=== PATIENT | male | born 1940 | race Caucasian/White ===

== ENCOUNTER 2022-05-25 02:46 | Emergency (ER) | payer MEDICARE, BC, SELFPAY ==
[2022-05-25] VITALS (9 sets, daily range): BP systolic 133–167; BP diastolic 70–82; PULSE 51–64; RESP 16; TEMP 36.5; O2SAT 95–100; BMI 25.8
--- NOTE | 2022-05-25 03:10 | CRLHL7_ITS ---
For Patients: As a result of the Century Cures Act, medical imaging exams and procedure reports are released immediately into your electronic medical record. You may view this report before your referring provider. If you have questions, please contact your health care provider. INDICATION: Chest pain. TECHNIQUE: Chest 2 views. COMPARISON: Chest radiograph 02/13/2019. FINDINGS: No focal consolidation, pleural effusion, or pneumothorax. Normal heart size and pulmonary vascularity. Degenerative changes of the spine. IMPRESSION: No acute cardiopulmonary findings. Dictated by Maggie Glynn MD @ 05/25/2022 4:33:45 AM (Electronically Signed)
--- NOTE | 2022-05-25 03:22 | ED_ITS ---
HPI - Chest Pain General Time Seen by Provider: 03: Date Seen: 05/25/22 Chief Complaint: Chest Pain Stated Complaint: Chest Pain Time Seen by Provider: 05/25/22 02:49 Source: patient Mode of arrival: ambulatory Limitations: no limitations History of Present Illness HPI narrative: Patient is a enzo 81-year-old gentleman who presents here with chest pain he ambulatory to the emergency room the chest pain started 10:00 a.m. after went to sleep he describes his epigastric region when he took a deep breath in he noticed it. The pain is gone away totally, since he has come to the hospital he feels back to baseline at the present time. His was a nurse who accompanied him here tells me that she wondered if this was related to: Issue as he has had previous colon cancer and also small-bowel obstruction few years ago that had to have an operation. Did feel his abdomen and felt that was soft and thought this was unlikely. Given his age however she worried about whether this was cardiac in nature in the presented here to the emergency room. They did not take any medications at home to help this. There is no radiation no other symptoms associated with this. He has never before had symptoms like this MD complaint: chest discomfort Onset (ago): hour(s) (4 hrs ) Timing of current episode: constant Prior episodes: No Onset: during rest Pain location: epigastric Pain radiation: none Severity: moderate Quality: fullness Relieving factors: nothing Exacerbating factors: nothing Treatment prior to arrival: none Risk Factors Coronary artery disease risk factors: none Thoracic aortic dissection risk factors: none Related Data Home Medications Medication Instructions Recorded Confirmed Benadryl 05/25/22 atorvastatin 10 mg tablet mg 05/25/22 diltiazem HCl 300 mg capsule,24 mg PO 05/25/22 hr,extended release lisinopril 5 mg tablet mg 05/25/22 paroxetine HCl 10 mg tablet mg PO 05/25/22 spironolactone 25 mg tablet mg 05/25/22 tamsulosin 0.4 mg capsule mg PO 05/25/22 Allergies Allergy/AdvReac Type Severity Reaction Status Date / Time No Known Drug Allergies Allergy Verified 05/25/22 03:11 Review of Systems Status of ROS Reports: 10 or more systems reviewed and unremarkable except as noted in History and below PFSH PFSH Social History Smoking Status: Never smoker How often do you have a drink containing alcohol: 2-4 times a month AUDIT-C Alcohol total score: 2 Non-prescribed substance use: denies use Exam Const Vital Signs, click to edit/add: Vital Signs - 24 hr 05/25/22 02:58 05/25/22 03:00 05/25/22 03:20 Temperature 97.7 F Pulse Rate [Right Pulse Oximeter] 63 64 58 L Respiratory Rate 16 16 16 Blood Pressure [Left Upper Arm] 151/80 H 151/80 H 152/73 H Pulse Oximetry 100 97 97 05/25/22 03:40 05/25/22 04:20 05/25/22 05:00 Temperature Pulse Rate [Right Pulse Oximeter] 63 57 L 52 L Respiratory Rate 16 16 16 Blood Pressure [Left Upper Arm] 167/82 H 151/77 H 133/73 Pulse Oximetry 97 96 95 05/25/22 05:40 05/25/22 06:00 05/25/22 06:40 Temperature Pulse Rate [Right Pulse Oximeter] 51 L 53 L 57 L Respiratory Rate 16 16 16 Blood Pressure [Left Upper Arm] 145/70 H 136/77 152/75 H Pulse Oximetry 97 96 98 Documenting provider has reviewed patient's vital signs: yes Common normals: no apparent distress, average body habitus, oriented x3, no limitations, healthy appearing, alert and well nourished General appearance: cooperative, comfortable, well kempt and well developed Orientation/consciousness: Yes awake, Yes oriented to person, Yes oriented to place and Yes oriented to time [facility] Common normals: normocephalic, head/scalp atraumatic, hearing grossly normal bi laterally, external ears normal, EAC's normal, TM's normal bilaterally, external nose normal, nasal mucous membranes and turbinates normal, moist oral mucous membranes, oropharynx normal, dentition normal and gingiva normal Head and scalp: normocephalic and atraumatic Nose: external nose normal and nasal mucous membranes and turbinates normal External ear: external ears normal External auditory canal: EAC's normal Tympanic membrane: TM's normal bilaterally Mouth: oral and palatal mucosa normal Eye Common normals: PERRL, EOMs intact bilaterally, conjunctivae normal, no scleral icterus, no papilledema, normal visual leahy by confrontation and fundi normal bilaterally Conjunctiva: conjunctiva(e) normal Pupil: PERRL Direct Ophthalmoscopy: no papilledema and fundi normal bilaterally Neck & C-Spine Common normals: full ROM, no lymphadenopathy, supple, no meningeal signs, no JVD, thyroid normal and no carotid bruits Thyroid: thyroid normal Chest Common normals: inspection of chest normal, palpation of chest normal, inspection of breasts normal and palpation of breasts normal Resp Common normals: normal respiratory effort, no retractions, no use of accessory muscles, clear to auscultation bilaterally and percussion normal Auscultation: clear to auscultation bilaterally Percussion: percussion normal Cardio Common normals: no JVD, regular rate, regular rhythm, S1 normal heart sound, S2 normal heart sound, no gallops, no clicks, no murmurs, no rub and peripheral pulses 2+ throughout Rate: regular rate Rhythm: regular rhythm Heart sounds: S1 normal and S2 normal Peripheral pulses: pulses 2+ throughout GI Common normals: Normal to inspection, nondistended, normoactive bowel sounds present, non-tender, no hepatosplenomegaly, no masses and no bruits Inspection: normal to inspection and other (Scars from previous surgery are noted well-healed) Auscultation: normoactive bowel sounds Palpation: no hepatosplenomegaly Common normals: no CVA tenderness, external exam normal, testes normal, scrotum normal, no scrotal swelling and no hernias present Bladder/kidney exam: no CVA tenderness Back & Pelvis Common normals: no CVA tenderness Extremity Common normals: normal to inspection, full ROM, normal capillary refill, no joint enlargement, no clubbing, cyanosis or edema, no calf tenderness and no pedal edema Neuro Common normals: oriented x3 Sensorium/orientation: awake, alert, oriented to person, oriented to place and oriented to time Meningeal signs: no meningeal signs Psych Appearance: well kempt Skin Common normals: no rashes or lesions noted, no wounds, skin turgor normal, no jaundice, no petechiae and no mottling General skin exam: no rashes or lesions noted and turgor normal Course Course Hospital Course: Patient remained pain-free during his entire course here his 2nd troponin was also 0, done 3 hours after the 1st, his heart score is in the low risk category. D-dimer age adjusted was also normal. Repeat EKG was also normal. His chest x-ray imaging was normal. Laboratory work was also negative including a COVID test. I think it would be reasonable let him go home at this point he is pain free, follow-up with primary care suggested consideration of further imaging at this point. Return here if increasing chest pain shortness of breath or any other worrisome signs and symptoms which I discussed with him. Vital Signs Vital signs: Initial Vital Signs Temperature 97.7 F 05/25/22 02:58 Temperature Source Temporal Artery Scan 05/25/22 02:58 Pulse Rate 63 05/25/22 02:58 Respiratory Rate 16 05/25/22 02:58 Blood Pressure 151/80 H 05/25/22 02:58 Blood Pressure Mean 103 05/25/22 02:58 Blood Pressure Position Supine 05/25/22 02:58 Pulse Oximetry 100 05/25/22 02:58 Oxygen Delivery Method 05/25/22 02:58 Vital Signs Temperature 97.7 F 05/25/22 02:58 Pulse Rate 63 05/25/22 02:58 Respiratory Rate 16 05/25/22 02:58 Blood Pressure 151/80 H 05/25/22 02:58 Pulse Oximetry 100 05/25/22 02:58 Temperature 97.7 F 05/25/22 02:58 Pulse Rate 57 L 05/25/22 06:40 Respiratory Rate 16 05/25/22 06:40 Blood Pressure 152/75 H 05/25/22 06:40 Pulse Oximetry 98 05/25/22 06:40 MDM - Chest Pain MDM Narrative Medical decision making narrative: During the evaluation of this patient I considered multiple differential diagnosis is. The life-threatening differential diagnosis include coronary disease/CT, pulmonary embolism, pneumothorax, pneumonia, and aortic dissection. Other differential diagnosis included but were not limited to pericarditis, myocarditis, chest wall pain, GERD, esophageal rupture, rib fracture contusion, pleurisy, as well as other etiologies. Differential Diagnosis Differential diagnosis: Likely fracture of rib, pneumothorax, stable angina, unstable angina pectoris, atypical chest pain, st elevation myocardial infarction, costochondritis, chest pain and biliary colic Medical Records Data Attestation: I reviewed the patient's medical records. Lab Data Attestation: I reviewed the patient's lab results. Lab results narrative: Initial troponin 0, D-dimer elevated at 0.76 but age adjusted it is below the of the trigger level. He continues to be pain-free, hemoglobin, CBC, basic metabolic profile all within normal limits. We will do a 3 hour troponin EKG on him. If he remains pain-free then I think we can let him go home. I have discussed this with them. Labs: Lab Results 05/25/22 05/25/22 05/25/22 Range/Units 03:35 03:35 03:35 WBC 8.63 (4.50-11.00) K/uL RBC 4.13 L (4.30-5.90) m/uL Hgb 13.2 L (13.5-17.5) gm/dL Hct 39.8 (37.0-53.0) % MCV 96 (80-100) fL MCH 32 (26-34) pg MCHC 33 (32-36) gm/dL RDW Coeff of Dwain 12.1 (11.5-15.5) % Plt Count 253 (140-440) K/uL Neut % (Auto) 66.6 (42.0-72.0) % Lymph % (Auto) 20.6 (20-44) % Greene % (Auto) 8.8 (0.0-11.0) % Eos % (Auto) 3.6 (0.0-7.0) % Baso % (Auto) 0.3 (0.0-3.0) % Neut # (Auto) 5.74 (1.7-7.0) K/uL Lymph # (Auto) 1.78 (0.90-2.90) K/uL Greene # (Auto) 0.80 (0.00-0.90) K/UL Eos # (Auto) 0.31 (0.00-0.50) K/uL Baso # (Auto) 0.03 (0.00-0.30) K/uL Abs Immat Gran (auto) 0.01 (0.00-0.30) K/uL INR 1.03 (0.91-1.10) APTT 37 H (23-33) Seconds D-Dimer Quant (PE/DVT) 0.76 H (0.00-0.50) ug/ml Sodium 136 (135-149) mmol/L Potassium 4.4 (3.6-5.1) mmol/L Chloride 103 (96-114) mmol/L Carbon Dioxide 31 (20-32) mmol/L BUN 20 (7-30) mg/dL Creatinine 1.1 (0.5-1.5) mg/dL Estimated Creat Clear 48.41 Estimated GFR 67 ml/min Glucose 112 (60-115) mg/dL Calcium 9.6 (8.4-10.6) mg/dL NT-Pro-B Natriuret Pep 261 (0-450) PG/mL SARS-CoV-2 (PCR) (Negative) POC Troponin I (0.01-0.04) ng/ml 05/25/22 05/25/22 05/25/22 Range/Units 03:35 03:35 06:45 WBC (4.50-11.00) K/uL RBC (4.30-5.90) m/uL Hgb (13.5-17.5) gm/dL Hct (37.0-53.0) % MCV (80-100) fL MCH (26-34) pg MCHC (32-36) gm/dL RDW Coeff of Dwain (11.5-15.5) % Plt Count (140-440) K/uL Neut % (Auto) (42.0-72.0) % Lymph % (Auto) (20-44) % Greene % (Auto) (0.0-11.0) % Eos % (Auto) (0.0-7.0) % Baso % (Auto) (0.0-3.0) % Neut # (Auto) (1.7-7.0) K/uL Lymph # (Auto) (0.90-2.90) K/uL Greene # (Auto) (0.00-0.90) K/UL Eos # (Auto) (0.00-0.50) K/uL Baso # (Auto) (0.00-0.30) K/uL Abs Immat Gran (auto) (0.00-0.30) K/uL INR (0.91-1.10) APTT (23-33) Seconds D-Dimer Quant (PE/DVT) (0.00-0.50) ug/ml Sodium (135-149) mmol/L Potassium (3.6-5.1) mmol/L Chloride (96-114) mmol/L Carbon Dioxide (20-32) mmol/L BUN (7-30) mg/dL Creatinine (0.5-1.5) mg/dL Estimated Creat Clear Estimated GFR ml/min Glucose (60-115) mg/dL Calcium (8.4-10.6) mg/dL NT-Pro-B Natriuret Pep (0-450) PG/mL SARS-CoV-2 (PCR) Negative SARS-CoV-2 (Negative) POC Troponin I 0.00 L 0.00 L (0.01-0.04) ng/ml Imaging Data Chest x-ray: Attestation: I have reviewed the pertinent imaging results. My impression: No acute infiltrate no pneumothorax normal heart size no acute findings. Radiologist's impression: Patient: BHAVIN VELAZCO Facility: [facility] Site . Site : [id number] Study: XRay Chest 2 views-05/25/2022 3:41:18 AM Ordering Physician: Cuong Cárdenas Final Report: INDICATION: Chest pain. TECHNIQUE: Chest 2 views. COMPARISON: Chest radiograph 02/13/2019. FINDINGS: No focal consolidation, pleural effusion, or pneumothorax. Normal heart size and pulmonary vascularity. Degenerative changes of the spine. IMPRESSION: No acute cardiopulmonary findings. Dictated by Maggie Glynn MD @ 05/25/2022 4:33:45 AM (Electronic Signature) ECG Data Attestation: I personally reviewed and interpreted this ECG as follows: ECG interpretation date: 05/25/22 ECG interpretation time: 03:30 Prior ECG tracings: not available for review Interpretation: Sinus rhythm with occasional PVCs ventricular rate 62, no acute ST wave changes 6:41 a.m. 2nd EKG is done showing borderline first-degree block sinus bradycardia but otherwise normal EKG with no acute changes unchanged from previous Discharge Plan Discharge Clinical Impression: Atypical chest pain, Chest pain Patient Disposition: Home w/ Parent or Adult Condition: Improved Instructions: Chest Pain (ED) Additional Instructions: Home rest consider follow-up with her primary care physician for further testing consideration. Your blood tests all came back within normal limits. No evidence of heart damage her EKGs were normal. With no changes also. Because of the pain remains elusive but likely a GI cause is most likely. Activity Level: No Restrictions Prescriptions: No Action paroxetine HCl 10 mg tablet PO 0RF Label Comments: TAKE 1 TABLET BY MOUTH ONCE DAILY atorvastatin 10 mg tablet 0RF Label Comments: TAKE 1 TABLET BY MOUTH ONCE DAILY IN THE EVENING STOP TAKING SIMVASTATIN diltiazem HCl 300 mg capsule,extended release 24 hr PO 0RF Label Comments: TAKE 1 CAPSULE BY MOUTH ONCE DAILY spironolactone 25 mg tablet 0RF Label Comments: TAKE 1 TABLET BY MOUTH ONCE DAILY tamsulosin 0.4 mg capsule PO 0RF Label Comments: TAKE 1 CAPSULE BY MOUTH ONCE DAILY IN THE EVENING lisinopril 5 mg tablet 0RF Label Comments: TAKE 1 TABLET BY MOUTH ONCE DAILY Benadryl 0RF Follow Up/Referrals: Marlo Wright MD [Primary Care Provider] - Stand Alone Forms: [facility] Info Instructions Procedures Ultrasound Cardiac exam #1: Anatomical areas examined: subxiphoid, parasternal long, parasternal short and apical 4 chamber Indications: chest pain Exam type: limited transthoracic echocardiogram Impression: negative exam
[2022-05-25] MEDS: ASPIRIN 81 MG TAB.CHEW 162 MG PO (03:24)
[2022-05-25 03:49] LABS: Basophils Absolute Auto 0.03 K/uL (0.00-0.30); Basophils Percent Auto 0.3 % (0.0-3.0); Eosinophils Absolute Auto 0.31 K/uL (0.00-0.50); Eosinophils Percent Auto 3.6 % (0.0-7.0); Hematocrit 39.8 % (37.0-53.0); Hemoglobin* 13.2 gm/dL (13.5-17.5); Immature Granulocytes Abs Auto 0.01 K/uL (0.00-0.30); Lymphocytes Absolute Auto 1.78 K/uL (0.90-2.90); Lymphocytes Percent Auto 20.6 % (20-44); Mean Corpuscular HGB Conc 33 gm/dL (32-36); Mean Corpuscular Hemoglobin 32 pg (26-34); Mean Corpuscular Volume 96 fL (80-100); Monocytes Percent Auto 8.8 % (0.0-11.0); Neutrophils Absolute Auto 5.74 K/uL (1.7-7.0); Neutrophils Percent Auto 66.6 % (42.0-72.0); Platelet Count* 253 K/uL (140-440); RDW Coefficient of Variation % 12.1 % (11.5-15.5); Red Blood Count 4.13 m/uL (4.30-5.90); White Blood Count* 8.63 K/uL (4.50-11.00)
[2022-05-25 03:50] LABS: Slide Review Reflex No
[2022-05-25 04:02] LABS: Chloride* 103 mmol/L (96-114)
[2022-05-25 04:03] LABS: Potassium* 4.4 mmol/L (3.6-5.1); Sodium* 136 mmol/L (135-149)
[2022-05-25 04:05] LABS: Creatinine* 1.1 mg/dL (0.5-1.5); Est. Creatinine Clearance* 48.41; Estimated Glomerular Filt Rate 67 ml/min; INR 1.03 (0.91-1.10); Prothrombin Time 13.9 Seconds
[2022-05-25 04:06] LABS: Blood Urea Nitrogen* 20 mg/dL (7-30); Calcium* 9.6 mg/dL (8.4-10.6); Carbon Dioxide* 31 mmol/L (20-32); Glucose* 112 mg/dL (60-115); Partial Thromboplastin Time* 37 Seconds (23-33)
[2022-05-25 04:08] LABS: D Dimer Quantitative* 0.76 ug/ml (0.00-0.50)
[2022-05-25 04:15] LABS: NT Pro B Type NatriureticPept* 261 PG/mL (0-450)
[2022-05-25 05:15] LABS: SARS PCR* Negative SARS-CoV-2 (Negative)
== END 2022-05-25 07:39 | disposition home or self-care (01) ==
PROVIDERS: Emergency Provider Family Medicine; PCP Family Medicine
DX: R07.9 Chest pain, unspecified (principal)
CPT/HCPCS: 36415; 71046; 80048; 83880; 84484; 85025; 85379; 85610; 85730; 87635; 93005; 93308; 99285; A9270

== ENCOUNTER 2022-09-12 11:03 | Outpatient (CLI) | payer MEDICARE, BC, SELFPAY | END 2022-09-12 11:04 | disposition home or self-care (01) | LOC: NFLDUCREF 09-14 11:12 | PROVIDERS: PCP Family Medicine; Visit Provider Student in an Organized Health Care Education/Training Program | DX: R35.0 Frequency of micturition (principal); N39.0 Urinary tract infection, site not specified | CPT/HCPCS: 87086; 87186 ==

== ENCOUNTER 2023-02-15 12:45 | Outpatient (RCR) | payer MEDICARE, BC, SELFPAY ==
--- NOTE | 2022-12-30 17:44 | PT.OPEX ---
PT [place] Outpatient Eval PT [facility] Outpatient Eval Start: 12/30/22 09:59 Freq: Status: Active Protocol: Document 12/30/22 12:39 RADHA (Rec: 12/30/22 14:17 RADHA [id number]) E-signed By Jessy Kohler PT Physical Therapy Outpatient Evaluation Insurance Information Insurance Name Medicare B Insurance Information/Comments MEDICARE Medical Diagnosis BLE WEAKNESS UNSTEADINESS ON FEET Treating Diagnosis BLE WEAKNESS UNSTEADINESS ON FEET GAIT ABNORMALITY Referring MD JOSE G BOYKIN Subjective Subjective PATIENT STATES,MY SAYS I DON'T PICK MY FEET UP AND I THINK I STUMBLE TOO MUCH. PATIENT REPORTS NOT FEELING LIKE HE IS STEADY AND OFTEN FINDS HIMSELF REACHING TO BALANCE DURING ORDINARY DAY TO DAY ACTIVITIES. HE IS HERE B/ C HE DOES NOT WANT TO FALL AND INJURY HIMSELF. Pain Comments 0/10 AT REST Date of Last Physician Visit 12/04/22 Current Work Status Retired Occupation RETIRED CPA Preferred Name BHAVIN Precautions Therapy Limitations/Systems Review Cognition Objective Other/Pertinent Objective KNEE ROM Flexion: WFL'S Extension: WFL'S HIP ROM Flexion: RIGHT AROM 65 LEFT 55 Extension: R/L WFL'S Internal Rotation: PRONE RIGHT 35 LEFT 12 External Rotation PRONE RIGHT 45 LEFT 30 Abduction : WFL'S LLE MMT: Hip flexion: R 4-/5 L 4/5 Hip abduction: R 3+/5 L 3+/5 Hip extension: R 4-/5 L 4-/5 Knee flexion: R 4/5 L 4/5 Knee extension: R 4/5 L 4/5 SPECIAL TEST Valgus Test: (-) R/L Varus Test: (-) R/L Joint line tenderness: UNREMARKABLE Holly test: (-) R/L hyper flexion test: (-) R/L Ravi Compression: (-) R/L SAW test: (+) LEFT>RIGHT FADIR test: (+) LEFT>RIGHT Scour test: (-) R/L REFLEX: PATELLA R 1+/L 2+ ACHILLES R 1+/2+ TX: SUPINE TRUNK ROTATION R/L 3 X 10 SEC SLR X 10 BRIDGE X 10 SEATED HR/TR X 10 SEATED KNEE EXT R/L X 10 SEATED MARCHING X 10 Functional Test Performed & Score 30 STS 4 TUG 19.4 SEC TINETTI 09/28 Assessment Assessment/Impression 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 PATIENT LIVES WITH IS SPOUSE IN A 2 STORY HOME WITH A FINISHED BASEMENT NOTING 2 STEPS TO ENTER AND >10 STEPS TO THE SECOND FLOOR AND/OR BASEMENT. HE REPORTS ALL HIS NEEDS ARE MET ON THE FIRST FLOOR WITH INFREQUENT TRIPS TO BASEMENT NOTING A RAILING ASCENDING ON THE RIGHT BOTH TO ENTER HOME, ACCESS SECOND FLOOR AND BASEMENT. PATIENT REPORTS HAVING FALLEN ON THE ICE OCT 2022 WITH NO SIGNIFICANT INJURY BUT THAT HE HAS DECREASED HIS ACTIVITY SINCE THEN. ADDITIONALLY, HE REPORTS HAVING WALKED FOR EXERCISE WELL BEEN ABLE TO PLAY GOLF UP TO ABOUT A YEAR AGO BUT BEGAN HAVING DIFFICULTY D/T BLE FATIGUE AND UNSTEADINESS THAT HE STOPPED THOSE ACTIVITIES FOR FEAR OF FALLING. HE IS HERE MORE B/C HIS WHO IS ARE RETIRED NURSE NOTICED CHANGES IN GAIT AND POSTURING WITH INCREASED INSTANCES OF STUMBLING. HE ALSO IS BEING SEEN BY OCCUPATIONAL THERAPY TO ADDRESS HIS LEFT HAND NUMBNESS AND IS SCHEDULED FOR AN EMG ON 12/10/22. TODAY, HE DEMONSTRATES UNSTEADINESS UPON STAND AND WITH ALL DIRECTIONAL CHANGES UTILIZING FURNITURE AND THE WALL TO STEADY HIMSELF. OF NOTE, HIS RIGHT PATELLA TENDON REFLEX IS 1+ COMPARED TO LEFT AT 2+ WHICH FOLLOWED SUIT WITH HIS ACHILLES REFLEX. HE DENIES AN H/O STROKE OR BACK ANOMOLIES. HE IS A SIGNIFICANT RISK FOR FALLS EVIDENCED BY A SCORE OF 11/28 ON THE TINETTI BALANCE AND MOBILITY EXAM, 4 STS IN 30 SEC, AND 19.4 SEC ON THE TUG. HE HAS A NOTABLE LEG LENGTH DECREPENCY WITH L SHORTER BY ~1 COMPARED TO THE RIGHT WHICH HE REVEALS IS A RESULT OF THE RIGHT NERIS. HE REPORTS HAVING INSERTS TO ALL HIS SHOES. HE HAS LEFT>RIGHT HIP TIGHTNESS AND RIGHT>LEFT WEAKNESS. ADDITIONALL, HE AMB WITH RIGHT TRENDELENBURT GAIT PATTERN WELL MODERATE FWD TRUNK POSTURING. HE IS CONCERNED THAT HE IS UNABLE TO AMB STEPS W/O PULLING UP WITH HIS BUE AND THAT HE IS UNABLE TO RETURN TO HIS FEET FROM THE FLOOR. TODAY, HE NEEDED QUITE A BIT OF REPITION AND REWORDING TO UNDERSTAND THE SAME EXERCISE PROGRAM PROVIDED FOR HIS NERIS HEP. HE DEMONSTRATES COGNITIVE DEFICITS BUT NO DX THAT I'M AWARE OF. NEXT VISIT I WILL ADMINISTER THE [facility] TO DISCERN EXACTLY WHERE IS DEFICIT RESIDE. TODAY, HE IS PROVIDED AN HEP TO ADDRESS TRUNK AND BLE FLEXIBLITY ALONG WITH STRENGTHENING. HE STRUGGLED CONCEPTUALLY WHAT REPS AND SETS WERE AND FINALLY WAS ABLE TO FIND SOME RELATIONSHIP. HE IS APPROPRIATE FOR SKILLED PHYSICAL THERAPY TO ADDRESS HIS FUNCTIONAL MOBILTY AND BALANCE ALONG WITH FALL PREVENTION AND STRENGTH TO REDUCE HIS RISK FOR FALLS AND MEET HIS PATIENT CENTERED GOALS. PATIENT VERBALIZED UNDERSTANDING OF ALL SKILLED INSTRUCTION WITH PLANS TO REVIEW FOR THE NEXT 2 VISIT D/ T HIS COGNITIVE CHALLENGES. PATIENT IS AGREEABLE TO POC AND FREQ Primary Functional Limitations DIFFICULTY WITH HOUSEHOLD AND COMMUNITY AMB UNSTEADINESS ON FEET DIFFICULTY WITH TRANSFERS AND BALANCE UPON STAND DIFFICULTY WITH STAIRS Plan of Care Rehabilitation Potential Good Rehabilitation Potential Comments PATIENT HAS NOTABLE COGNITIVE DELAY WITH REPEATED INSTRUCTIONS NEEDED WELL ADDING A RELATIONSHIP TO HIS UNDERSTANDING. Physical Therapy Goals ST. PATIENT WILL BE INDEPENDENT WITH HIS HEP IN 4 WEEKS 2. PATIENT WILL PERFORM 8 STS IN 30 SEC IN 4 WEEKS 3. PATIENT WILL AMB WITH UPRIGHT POSTURING DURING HOUSEHOLD AMB WITH 50% LESS CUES PROVIDED BY . LT. PATIENT WILL IMPROVE FALL RISK BY INCREASEING TINETTI FROM 09/28 TO 18 IN 8-12 WEEKS 2. PATIENT WILL IMPROVE THE TUG FROM 19.4 SEC TO 14 SEC OR LESS IN 8-12 WEEKS 3. PATIENT WILL AMB COMMUNITY DISTANCES SAFELY AND CONSISTENTLY TO PARTICIPATE IN WALKING FOR EXERCISE WITH HIS IN 8-12 WEEKS Coordination/Communication With Referral Source Treatment Plan/Direct Interventions Gait Training,Joint Mobilization,Manual Therapy, Neuromuscular Re-ed, Therapeutic Activities, Therapeutic Exercises Patient Will Be Discharged From Therapy Completion of LTG(s),Skills Plateau,Independent w/HEP Discharge Plan Comments DISCHARGE PATIENT TO SELF AND INDEPENDENT HEP WHEN GOALS MET OR MAX POTENTIAL ACHIEVED Evaluation Billing Untimed Code Treatment Minutes 20 PT Eval No Charge No Complexity Low Certification Information Initial Certification Date 12/30/22 Ending Certification Date 03/24/23 Provider Signature Shows Agreement With POC & Medical Necessity Physician Signature & Date Requested Please Sign/Date Here Physician Comment/Change : Physician NPI Number #
== END 2023-02-22 10:37 | disposition home or self-care (01) ==
PROVIDERS: PCP Family Medicine; Visit Provider Family Medicine
DX: R29.898 Other symptoms and signs involving the musculoskeletal system (principal); Z51.89 Encounter for other specified aftercare
CPT/HCPCS: 97110; 97116; 97140; 97161; 97165; X5282

== ENCOUNTER 2023-06-24 12:18 | Outpatient (CLI) | payer MEDICARE, BC, SELFPAY | END 2023-06-24 12:19 | disposition home or self-care (01) | LOC: NFLDREF 06-26 13:40 | PROVIDERS: PCP Family Medicine; Referring Provider Family Medicine; Visit Provider Nurse Practitioner Family | DX: R30.0 Dysuria (principal); N30.00 Acute cystitis without hematuria | CPT/HCPCS: 87086 ==

== ENCOUNTER 2023-08-11 11:10 | Outpatient (CLI) | payer MEDICARE, BC, SELFPAY | END 2023-08-11 11:11 | disposition home or self-care (01) | LOC: NFLDREF 08-13 06:04 | PROVIDERS: PCP Family Medicine; Referring Provider Family Medicine; Visit Provider Physician Assistant | DX: R30.0 Dysuria (principal); N30.00 Acute cystitis without hematuria; N39.0 Urinary tract infection, site not specified | CPT/HCPCS: 87086; 87186 ==

== ENCOUNTER 2023-09-25 10:37 | Outpatient (CLI) | payer MEDICARE, BC, SELFPAY | END 2023-09-25 10:38 | disposition home or self-care (01) | PROVIDERS: PCP Family Medicine; Visit Provider Nurse Practitioner Family | DX: N48.9 Disorder of penis, unspecified (principal) | CPT/HCPCS: 87070; 87086; 87102; 87186; 87205 ==

== ENCOUNTER 2023-10-01 10:30 | Outpatient (RCR) | payer MEDICARE, BC, SELFPAY | END 2024-01-29 23:59 | disposition home or self-care (01) | PROVIDERS: PCP Family Medicine; Visit Provider Orthopaedic Surgery | DX: Z98.890 Other specified postprocedural states (principal); Z51.89 Encounter for other specified aftercare | CPT/HCPCS: 97035; 97110; 97140; 97165; X5282 ==

== ENCOUNTER 2023-10-05 14:09 | Emergency (ER) | payer MEDICARE, BC, SELFPAY | END 2023-10-05 14:26 | disposition home or self-care (01) | PROVIDERS: Emergency Provider Emergency Medicine Emergency Medical Services; PCP Family Medicine | DX: Z53.21 Procedure and treatment not carried out due to patient leaving prior to being seen by health care provider (principal) ==

== ENCOUNTER 2023-10-14 09:30 | Outpatient (RCR) | payer MEDICARE, BC, SELFPAY ==
--- NOTE | 2023-09-08 10:22 | PT.OPEX ---
PT [place] [facility] Eval Start: 09/08/23 07:31 Freq: Status: Active Protocol: Document 09/08/23 07:32 CRP (Rec: 09/08/23 10:20 CRP [id number]) E-signed By David Davila PT Physical Therapy Outpatient Evaluation Insurance Information Recert Due Date 12/07/23 Insurance Name Medicare B Medical Diagnosis Lumbar Degenerative disc disease Treating Diagnosis LBP Muscle weakness gait difficulties Referring MD Dr Arthur Subjective Subjective Pt co LBP that is chronic. Pt has had imaging that showed lumbar spine degeneration. He did meet with a surgeon and was told surgery would not help. Was then given an order for PT. Pain is located at low back more off to the Left. Pain can be very sharp and intense when going from sitting to standing. Mornings are the most painful. Morning pain 8/10. During the day his pain is around 2/10. No pain sitting. No LE pain. Has had times of numbness in the left foot. Pt lives in small home that only has stairs to get to the basement that he does not need to use. One step from house to the outside. Stairs are OK. Pt is also concerned about his balance. Uses a cane. PMHx Had L carpal tunnel and ulnar nn surgery at the L elbow about a month ago. Told not to lift more than 4#. Pain Comments 2-8/10 Current Work Status Retired Objective Range of Motion Trunk ROM Flex WNL seated Ext 10 deg from neutral with LBP R SB mod dec L SB marcy dec with LBP Hip AROM WFL bilat Strength MMT Myotomes WNL Bilat hip abd and ext 4-/5 Palpation Palpable pain L lower lumbar spine Balance & Gait TUG x 35 sec with FWW Sensation/Reflexes Sensation intact to light touch Functional Test Performed & Score Oswestry 42 Assessment Assessment/Impression Pt presents to the clinic with long standing issues of LBP that appears secondary to DDD resulting in pain with standing and walking activity. Pts status is characterized by painful loss of lumbar spine ROM, trunk weakness, LE weakness and poor tolerance to functional mobility. With this the pt also shows balance deficits that will need to be addressed. Skilled PT is necessary to incorporate ther ex, nm fabio, manual therapy, balance exer and functional retraining to decrease pain and improve functional mobility. 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 Pt will be independent with HEP in 6 weeks 2. Pt will walk with 75% decrease in pain in 12 weeks 3. Pt will score 15 sec or lower on TUG testing in 12 weeks Coordination/Communication With Referral Source Treatment Plan/Direct Interventions Gait Training,Joint Mobilization,Manual Therapy, Neuromuscular Re-ed,Self-Care/ Home Management,Therapeutic Activities,Therapeutic Exercises Frequency/Duration 2x/wk for 12 weeks Patient Will Be Discharged From Therapy Completion of LTG(s),Skills Plateau,Independent w/HEP, Independently Progressing Evaluation Billing Untimed Code Treatment Minutes 30 Complexity Moderate Certification Information Initial Certification Date 09/08/23 Ending Certification Date 12/07/23 Provider Signature Shows Agreement With POC & Medical Necessity Physician Signature & Date Requested Please Sign/Date Here Physician Comment/Change : Physician NPI Number #
== END 2024-02-11 23:59 | disposition home or self-care (01) ==
PROVIDERS: PCP Family Medicine; Visit Provider Family Medicine
DX: Z98.890 Other specified postprocedural states (principal); M51.36 Other intervertebral disc degeneration, lumbar region; M54.50 Low back pain, unspecified; M62.81 Muscle weakness (generalized); R26.9 Unspecified abnormalities of gait and mobility; Z51.89 Encounter for other specified aftercare
CPT/HCPCS: 97035; 97110; 97116; 97140; 97162; 97165; X5282

== ENCOUNTER 2023-10-26 09:16 | Outpatient (CLI) | payer MEDICARE, BC, SELFPAY ==
--- NOTE | 2023-10-26 09:15 | CRLHL7_ITS ---
For Patients: As a result of the 21st Century Cures Act, medical imaging exams and procedure reports are released immediately into your electronic medical record. You may view this report before your referring provider. If you have questions, please contact your health care provider. INDICATION: Low back pain. COMPARISON: 06/28/2023. Technique Sagittal T1, T2, and STIR sequences. Axial T1 and T2 weighted sequences. FINDINGS: Upper lumbar curve convex to the right. In sagittal plane, degenerative grade 1 anterolisthesis of L5 on S1 measures approximately 4 mm. Otherwise, normal alignment. No fractures. No vertebral body loss of height. No ligamentous injury. No suspicious osseous lesions. Normal conus terminates at L2. Vertebral body hemangioma L2. Congenitally short pedicles contributes to overall narrowed caliber of spinal canal. T11-12: Disc degeneration and posterior disc bulging. Mild narrowing of spinal canal. Moderate narrowing of bilateral foramina. T12-L1: Disc degeneration diffuse disc bulge eccentric to the left. Combined with facet arthropathy, there is moderate narrowing of the spinal canal. Mild right and moderate left neural foraminal narrowing. Moderate facet arthropathy. L1-2: Disc degeneration and loss disc height. Mild to moderate narrowing of spinal canal. Mild right and moderate left neural foraminal narrowing. Mild facet arthropathy. L2-3: Disc degeneration diffuse disc bulge and endplate osteophytic ridging eccentric to the left. Combined facet arthropathy, there is severe narrowing of the spinal canal. Moderate bilateral foraminal narrowing. Moderate facet arthropathy. L3-4: Disc generation diffuse disc bulge and endplate osteophytic ridging. Moderate to severe narrowing of spinal canal. Moderate right and mild left neural foraminal narrowing. Moderate facet arthropathy. L4-5: Advanced disc degeneration. Diffuse disc bulge and endplate osteophytic ridging. Severe narrowing of the spinal canal. Impingement of the traversing L5 nerve roots bilaterally. Moderate severe right and moderate left neural foraminal narrowing. Potential impingement of the exiting right L4 nerve root. Severe facet arthropathy. L5-S1: Grade 1 anterolisthesis. Disc degeneration. Unroofed posterior disc bulge. No narrowing of the spinal canal. No impingement of the traversing S1 nerve roots. Oblique orientation of bilateral foramina with moderate to severe narrowing. Moderate facet arthropathy. Degenerative changes of the SI joints. Bilateral renal cysts. IMPRESSION: 1. Degenerative grade 1 anterolisthesis of L5 on S1. Otherwise normal alignment. No fractures 2. Congenitally short pedicles. 3. Lumbar spondylosis. 4. At T11-12, moderate narrowing of the bilateral neural foramina 5. At T12-L1, moderate narrowing of the spinal canal and left neural foramina 6. At L2-3, severe narrowing of the spinal canal. Moderate narrowing of the bilateral neural foramina 7. At L3-4, moderate to severe narrowing of the spinal canal. Moderate right and mild left neural foraminal narrowing. 8. At L4-5, severe narrowing of the spinal canal. Impingement of the traversing L5 nerve roots bilaterally. Moderate to severe right and moderate left neural foraminal narrowing. Potential impingement of the exiting right L4 nerve root 9. At L5-S1, moderate to severe narrowing of the bilateral foramina. Potential impingement of the exiting L5 nerve roots Dictated by Cristhian Eaton MD @ 10/26/2023 12:43:15 PM (Electronically Signed)
== END 2023-10-26 09:17 | disposition home or self-care (01) ==
LOC: MRI 09:16
PROVIDERS: PCP Family Medicine; Visit Provider Family Medicine
DX: M54.50 Low back pain, unspecified (principal); M47.896 Other spondylosis, lumbar region; M51.24 Other intervertebral disc displacement, thoracic region; M51.26 Other intervertebral disc displacement, lumbar region; M51.27 Other intervertebral disc displacement, lumbosacral region
CPT/HCPCS: 72148

== ENCOUNTER 2023-11-05 11:10 | Outpatient (CLI) | payer MEDICARE, BC, SELFPAY | END 2023-11-05 11:11 | disposition home or self-care (01) | LOC: NFLDREF 11-11 09:30 | PROVIDERS: PCP Family Medicine; Referring Provider Family Medicine; Visit Provider Physician Assistant | DX: R30.0 Dysuria (principal); N39.0 Urinary tract infection, site not specified | CPT/HCPCS: 87086; 87186 ==

== ENCOUNTER 2023-11-23 07:12 | Outpatient (CLI) | payer MEDICARE, BC, SELFPAY | END 2023-11-23 07:13 | disposition home or self-care (01) | LOC: INJ CL 07:12 | PROVIDERS: PCP Family Medicine; Visit Provider Family Medicine | DX: M51.36 Other intervertebral disc degeneration, lumbar region (principal); M54.16 Radiculopathy, lumbar region; M48.062 Spinal stenosis, lumbar region with neurogenic claudication | CPT/HCPCS: 62323; J0702; Q9966 ==

== ENCOUNTER 2024-10-12 10:45 | Outpatient (RCR) | payer MEDICARE, BC, SELFPAY | END 2024-11-14 13:42 | disposition home or self-care (01) | PROVIDERS: PCP Family Medicine; Visit Provider Family Medicine | DX: Z98.890 Other specified postprocedural states (principal); M54.9 Dorsalgia, unspecified; R53.1 Weakness; R26.81 Unsteadiness on feet; Z51.89 Encounter for other specified aftercare | CPT/HCPCS: 97110; 97116; 97162; 97535 ==

== ENCOUNTER 2025-06-08 09:42 | Outpatient (CLI) | payer MEDICARE, BC, SELFPAY | END 2025-06-08 09:43 | disposition home or self-care (01) | LOC: NFLDUCREF 09:43 | PROVIDERS: PCP Family Medicine; Visit Provider Physician Assistant | DX: R30.0 Dysuria (principal); N39.0 Urinary tract infection, site not specified | CPT/HCPCS: 87086 ==